=== PATIENT | male | born 1925 | race Caucasian/White ===

== ENCOUNTER 2016-09-16 17:14 | Emergency (ER) | payer OTHER ==
[~2016-09-16] VITALS: Ht 162.6 cm; Wt 69.8 kg
[~2016-09-16 17:14] MED LIST: ATR10 PO; CALC-342 PO; CHOL20005 PO; CLR10 PO; CODCAP PO; CYAN500T13 PO; GARL400T4 PO; LECI1200 PO; LEVO112T4 PO; LISI-461 PO; MULTTAB58 PO
[2016-09-16 17:18] VITALS: Ht 162.6 cm; Wt 69.8 kg
[2016-09-16] MEDS ORDERED: SODIUM CHLORIDE 0.9% 500ML 500 ML IV STA (17:38)
[2016-09-16] MEDS ORDERED: METOPROLOL TARTRATE 50 MG TAB PO STA (17:38)
--- NOTE | 2016-09-16 17:47 | EMERGENCY ROOM VISIT NOTE ---
History Report prepared by Royal: Mukesh Chapin Under the Supervision of: Dr. Waldo Duenas D.O. First contact with patient: 17:23 Chief Complaint: CARDIAC ASSESSMENT Stated Complaint: HEART BEAT- IRREGULAR History of Present Illness The patient is an 89 year old male who presents to the Emergency Room with complaints of an intermittent irregular heart beat starting this morning. The patient states that he saw a PA this morning just for a check up, and they noticed that he had an irregular heart rate. The patient states that he has felt this before, and it sometimes happens when he lays down. The patient denies any chest pain, shortness of breath, or abnormal leg swelling. The patient states that it feels like his heart is fluttering, and he states that he has a possible heart murmur. He states that he has some right ankle swelling , though he thinks that it is due to arthritis from an old injury. He states that he has a history of thyroid issues and high blood pressure. He denies any smoking or drinking. He states that he had a stress test done in the past before , though he does not remember why he got it. Source of History: patient Onset: this morning Position: other (heart) Quality: other (irregular heart rate) Timing: intermittent Associated Symptoms: No chest pain, No SOB Review of Systems See HPI for pertinent positives & negatives. A total of 10 systems reviewed and were otherwise negative. Past Medical & Surgical Medical Problems: (1) Benign essential hypertension (2) Benign prostatic hyperplasia (3) Deep venous thrombosis of lower extremity (4) Hypothyroidism Family History Cancer Heart disease Social History Smoking Status: Never Smoker Alcohol Use: none Marital Status: Housing Status: lives with significant other Occupation Status: employed Current/Historical Medications Scheduled Calcium Carbonate-Vitamin D (Calcium 600+D), 1 TAB PO QAM Cholecalciferol (Vitamin D3), 2,000 INTER.UNIT PO QAM Cod Liver Oil (Cod Liver Oil), 1 CAP PO QAM Cyanocobalamin (Vitamin B12 500MCG), 500 MCG PO DAILY Docusate Sodium (Colace), 1 CAP PO BID Garlic (Garlic), 1 CAP PO DAILY Hydroxyzine HCl (Hydroxyzine HCl), 10 MG PO QAM Lecithin (Lecithin), 1,200 MG PO QAM Levothyroxine Sodium (Levothyroxine Sodium), 1 TAB PO DAILYBB Lisinopril (Lisinopril), 10 MG PO QAM Loratadine (Claritin), 10 MG PO QAM Metoprolol Succinate (Toprol Xl), 50 MG PO DAILY Multiple Vitamin (Multivitamin), 1 TAB PO QAM Ropinirole Hydrochloride (Requip), 1.5 TAB PO HS Warfarin Sodium (Coumadin), 5 MG PO DAILY Allergies Coded Allergies: Niacin (Verified Adverse Reaction, Unknown, Skin sensation of crawling., ) Reported by PT. Physical Exam Vital Signs Date Time Temp Pulse Resp B/P (MAP) Pulse Ox O2 Delivery O2 Flow Rate FiO2 09/16/16 21:03 36.7 89 22 141/91 94 09/16/16 20:36 89 22 94 09/16/16 20:31 141/91 09/16/16 20:06 89 22 94 09/16/16 20:01 143/107 09/16/16 19:36 97 23 94 09/16/16 19:31 138/103 09/16/16 19:23 114 22 97 09/16/16 19:01 137/108 09/16/16 18:53 100 25 95 09/16/16 18:31 135/74 09/16/16 18:30 94 Room Air 09/16/16 18:23 92 18 96 09/16/16 18:18 127/101 09/16/16 18:14 102 20 94 09/16/16 17:44 102 15 94 09/16/16 17:39 103 09/16/16 17:26 144/105 09/16/16 17:18 36.7 115 18 128/94 96 Room Air Physical Exam GENERAL: Patient is awake, alert, and in no acute distress. Patient is resting comfortably and showing no signs of anxiety EYES: The conjunctivae are clear. The pupils are round and reactive. EARS, NOSE, MOUTH AND THROAT: The nose is without any evidence of any deformity. Mucous membranes are moist tongue is midline NECK: The neck is nontender and supple. RESPIRATORY: Normal respiratory effort is noted there is no evidence of wheezing rhonchi or rales CARDIOVASCULAR: Heart sounds tachycardic with an irregular rhythm noted to auscultation. No definite murmur. GASTROINTESTINAL: The abdomen is soft. Bowel sounds are present in all quadrants. Abdomen is nontender MUSCULOSKELETAL/EXTREMITIES: There is no evidence of gross deformity full range of motion is noted in the hips and shoulders SKIN: Trace pedal edema right greater than left NEUROLOGIC: Patient is awake alert and oriented x3 Medical Decision & Procedures ER Provider Diagnostic Interpretation: X-ray results as stated below per interpretation by me and the radiologist. CHEST ONE VIEW PORTABLE CLINICAL HISTORY: Palpitations. COMPARISON STUDY: Chest radiograph June 12, 2014. FINDINGS: There is mild cardiomegaly without evidence of pulmonary edema. No consolidation is identified. There is no pneumothorax or pleural effusion. Cholecystectomy clips are present. IMPRESSION: No acute cardiopulmonary findings. No change in appearance of the chest. Electronically signed by: Gibson Justice M.D. 09/16/2016 6:04 PM Dictated Date/Time: 09/16/2016 6:03 PM Laboratory Results 09/16/16 17:33 Red Blood Count 4.71, Mean Corpuscular Volume 85.4, Mean Corpuscular Hemoglobin 28.7, Mean Corpuscular Hemoglobin Concent 33.6, Mean Platelet Volume 8.7, Neutrophils (%) (Auto) 57.6, Lymphocytes (%) (Auto) 29.3, Monocytes (%) (Auto) 10.2, Eosinophils (%) (Auto) 2.1, Basophils (%) (Auto) 0.7, Neutrophils # (Auto ) 4.17, Lymphocytes # (Auto) 2.12, Monocytes # (Auto) 0.74, Eosinophils # (Auto ) 0.15, Basophils # (Auto) 0.05 09/16/16 17:33 Test 09/16/16 17:33 White Blood Count 7.24 K/uL (4.8-10.8) Red Blood Count 4.71 M/uL (4.7-6.1) Hemoglobin 13.5 g/dL (14.0-18.0) Hematocrit 40.2 % (42-52) Mean Corpuscular Volume 85.4 fL (80-100) Mean Corpuscular Hemoglobin 28.7 pg (25-34) Mean Corpuscular Hemoglobin Concent 33.6 g/dl (32-36) Platelet Count 205 K/uL (130-400) Mean Platelet Volume 8.7 fL (7.4-10.4) Neutrophils (%) (Auto) 57.6 % Lymphocytes (%) (Auto) 29.3 % Monocytes (%) (Auto) 10.2 % Eosinophils (%) (Auto) 2.1 % Basophils (%) (Auto) 0.7 % Neutrophils # (Auto) 4.17 K/uL (1.4-6.5) Lymphocytes # (Auto) 2.12 K/uL (1.2-3.4) Monocytes # (Auto) 0.74 K/uL (0.11-0.59) Eosinophils # (Auto) 0.15 K/uL (0-0.5) Basophils # (Auto) 0.05 K/uL (0-0.2) RDW Standard Deviation 45.3 fL (36.4-46.3) RDW Coefficient of Variation 14.6 % (11.5-14.5) Immature Granulocyte % (Auto) 0.1 % Immature Granulocyte # (Auto) 0.01 K/uL (0.00-0.02) Prothrombin Time 10.6 SECONDS (9.0-12.0) Prothromb Time International Ratio 1.0 (0.9-1.1) Activated Partial Thromboplast Time 27.5 SECONDS (21.0-31.0) Partial Thromboplastin Ratio 1.1 Anion Gap 8.0 mmol/L (3-11) Est Creatinine Clear Calc Drug Dose 30.0 ml/min Estimated GFR () 51.3 Estimated GFR (Non- 44.2 BUN/Creatinine Ratio 13.2 (10-20) Calcium Level 9.1 mg/dl (8.5-10.1) Magnesium Level 2.1 mg/dl (1.8-2.4) Total Bilirubin 0.6 mg/dl (0.2-1) Direct Bilirubin 0.1 mg/dl (0-0.2) Aspartate Amino Transf (AST/SGOT) 19 U/L (15-37) Alanine Aminotransferase (ALT/SGPT) 19 U/L (12-78) Alkaline Phosphatase 81 U/L (45-117) Total Creatine Kinase 123 U/L (39-308) Creatine Kinase MB 2.7 ng/ml (0.5-3.6) Creatine Kinase MB Ratio 2.2 (0-3.0) Troponin I 0.018 ng/ml (0-0.045) Total Protein 7.2 gm/dl (6.4-8.2) Albumin 3.8 gm/dl (3.4-5.0) Lipase 142 U/L (73-393) Thyroid Stimulating Hormone (TSH) 1.140 uIu/ml (0.300-4.500) Free Thyroxine 1.47 ng/dl (0.80-1.60) Laboratory results per my review. Medications Administered Medications (Trade) Dose Ordered Sig/Cesar Route Start Time Stop Time Status Last Admin Dose Admin Metoprolol Tartrate (Lopressor Tab) 25 mg NOW STAT PO 09/16/16 17:38 09/16/16 17:39 DC 09/16/16 18:16 25 MG Sodium Chloride 500 ml @ 999 mls/hr Q31M STAT IV 09/16/16 17:38 09/16/16 18:08 DC 09/16/16 18:15 999 MLS/HR Warfarin Sodium (Coumadin Tab) 10 mg NOW ONCE PO 09/16/16 19:45 09/16/16 19:46 DC 09/16/16 20:50 10 MG ECG Indication: other (irregular heart rate) Rate (beats per minute): 116 Rhythm: atrial fibrillation Findings: PVC, ST depression (Lateral) Comparison ECG Date: 05/02/14 Change: A-fib replaced normal sinus rhythm. Otherwise no changes. ED Course 1723: The patient was evaluated in room B8. A complete history and physical examination were performed. 1738: NSS 500 ml @ 999 mls/hr IV, Lopressor Tab 25mg PO 1944: Coumadin Tab 10mg PO 2006: I discussed the patient's case with Dr. Carter, Cardiology, and he gave me medication recommendations, and he will follow up with the patient. 2016: Upon reevaluation, the patient is feeling well. I discussed the results and treatment plan with him. He verbalized agreement of the treatment plan. He was discharged home. Medical Decision Differential diagnosis: Etiologies such as premature contractions, electrolyte abnormality, cardiac dysrhythmia, thyroid dysfunction, pulmonary embolism, infection, gastrointestinal, as well as others were entertained. Nursing notes reviewed. The patient is an 89-year-old male who presented to the emergency department for an evaluation of asymptomatic atrial fibrillation. The patient appears to have new onset atrial fibrillation. He has had a cardiac workup in 2013. I discussed the patient's laboratory radiographic studies with him. He was treated with IV fluids as well as metoprolol in the emergency department. He was also started on Coumadin. I discussed his case with the on-call [facility] hydro excavation operator. He was also evaluated by the emergency Department pharmacist. The patient is familiar with Coumadin. 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 He was encouraged to rest and avoid any strenuous activity. He was also encouraged to continue all medications as prescribed. He was also encouraged return to emergency department immediately symptoms change worsen or the need arises. Medication Reconcilliation Current Medication List: was personally reviewed by me Blood Pressure Screening Patient's blood pressure: Elevated blood pressure Blood pressure disposition: Referred to PCP He is going to start on new medication Consults Time Called: 1909 Consulting Physician: Dr. Caretr, Cardiology Returned Call: 2005 I discussed the patient's case with Dr. Carter, Cardiology, and he gave me medication recommendations, and he will follow up with the patient. Impression Primary Impression: New onset a-fib Additional Impression: Palpitations Scribe Attestation The scribe's documentation has been prepared under my direction and personally reviewed by me in its entirety. I confirm that the note above accurately reflects all work, treatment, procedures, and medical decision making performed by me. Departure Information Dispostion Home / Self-Care Prescriptions Warfarin Sodium (COUMADIN) 5 Mg Tab 5 MG PO DAILY, #30 TAB Prov: Waldo Duenas, DO 09/16/16 Metoprolol Succinate (TOPROL XL) 50 Mg Tabcr 50 MG PO DAILY, #30 TAB Prov: Waldo Duenas, DO 09/16/16 Referrals Lyla Rae PA-C (PCP) Forms IMPORTANT VISIT INFORMATION Patient Instructions Atrial Fibrillation, Coumadin, [facility] Additional Instructions Call the hydro excavation operator as well as her primary care physician to schedule a follow -up appointment. Rest and avoid any strenuous activity. Return to the emergency department immediately if symptoms change worsen or the need arises. Stop taking your garlic supplement while your taking the Coumadin. Problem Qualifiers
[2016-09-16 17:50] LABS: BASO % 0.7 %; BASO ABS # 0.05 K/uL (0-0.2); COMPLETE YES; EOS % 2.1 %; HEMATOCRIT 40.2 % (42-52); IG% 0.1 %; LYMPH % 29.3 %; LYMPH ABS # 2.12 K/uL (1.2-3.4); MEAN CELL VOLUME 85.4 fL (80-100); MEAN CORPUSCULAR HEMOGLOBIN 28.7 pg (25-34); MEAN CORPUSCULAR HGB CONC 33.6 g/dl (32-36); MEAN PLATELET VOLUME 8.7 fL (7.4-10.4); MONO % 10.2 %; NEUT % 57.6 %; PLATELET COUNT 205 K/uL (130-400); RED BLOOD COUNT 4.71 M/uL (4.7-6.1); WHITE BLOOD COUNT 7.24 K/uL (4.8-10.8)
--- NOTE | 2016-09-16 18:05 | DIAGNOSTIC IMAGING REPORT ---
CHEST ONE VIEW PORTABLE CLINICAL HISTORY: Palpitations. COMPARISON STUDY: Chest radiograph June 12, 2014. FINDINGS: There is mild cardiomegaly without evidence of pulmonary edema. No consolidation is identified. There is no pneumothorax or pleural effusion. Cholecystectomy clips are present. IMPRESSION: No acute cardiopulmonary findings. No change in appearance of the chest. Electronically signed by: Gibson Justice M.D. 09/16/2016 6:04 PM Dictated Date/Time: 09/16/2016 6:03 PM
[2016-09-16 18:08] LABS: BUN/CREATININE RATIO 13.2 (10-20); CALCIUM 9.1 mg/dl (8.5-10.1); CREATININE 1.4 mg/dl (0.60-1.40); MAGNESIUM 2.1 mg/dl (1.8-2.4); POTASSIUM 4.4 mmol/L (3.5-5.1)
[2016-09-16] MEDS ORDERED: ROPI0.5T PO (18:08)
[2016-09-16] MEDS ORDERED: GARL500C5 PO (18:08)
[2016-09-16] MEDS ORDERED: LEVO125T4 PO (18:08)
[2016-09-16] MEDS ORDERED: DOCU-94 PO (18:09)
[2016-09-16 18:12] LABS: PARTIAL THROMBOPLASTIN RATIO 1.1; PROTHROMBIN TIME (PATIENT) 10.6 SECONDS (9.0-12.0)
[2016-09-16 18:17] LABS: CKMB/CK RATIO 2.2 (0-3.0); THYROID STIMULATING HORMONE 1.14 uIu/ml (0.300-4.500)
[2016-09-16] MEDS ORDERED: WARFARIN SOD 5 MG TAB PO ONE (19:45)
[2016-09-16] MEDS ORDERED: METO-217 PO (20:09)
[2016-09-16] MEDS ORDERED: WARF5TAB90 PO (20:09)
[2016-09-16 21:03] VITALS: BP 141/91; PULSE 89; TEMP 36.7; O2SAT 94
--- NOTE | 2016-09-17 11:18 | Pharmacy Progress Note ---
ED Pharmacist Counseling Note Date of Service: Sep 17, 2016. 09/16/16 Patient with new-onset Afib. I spent 30 minutes with the patient and his daughter discussing outpatient management as follows. Warfarin Patient's current outpatient prescriptions were reviewed - counseled to stop his garlic until he can have a discussion with his PCP / Coumadin clinic Discussed the following with the patient Goal INR range 2-3 Importance of outpatient follow-up / INR monitoring Drug interactions and importance of consistency Avoidance of NSAIDs - with the exception of his aspirin 81 mg Dietary considerations and importance of consistency Signs/symptoms of bleeding Signs/symptoms of clot
== END 2016-09-16 21:04 | disposition home or self-care (01) ==
LOC: C.EDB 17:15
DX: I48.91 Unspecified atrial fibrillation (principal); R00.2 Palpitations; I10 Essential (primary) hypertension; E03.9 Hypothyroidism, unspecified; Z86.718 Personal history of other venous thrombosis and embolism; Z79.01 Long term (current) use of anticoagulants; Z79.899 Other long term (current) drug therapy; Z88.8 Allergy status to other drugs, medicaments and biological substances; Z80.9 Family history of malignant neoplasm, unspecified; Z82.49 Family history of ischemic heart disease and other diseases of the circulatory system

== ENCOUNTER → 2016-09-24 | Outpatient (CLI) | payer OTHER ==
[~2016-09-24] MED LIST changes: +DOCU-94 PO; -GARL400T4 PO; +GARL500C5 PO; -LEVO112T4 PO; +LEVO125T4 PO; +METO-217 PO; +ROPI0.5T PO; +WARF5TAB90 PO
--- NOTE | 2016-09-24 12:25 | DIAGNOSTIC IMAGING REPORT ---
BILATERAL CAROTID DOPPLER STUDY HISTORY: BILATERAL CAROTID ARTERY ATHEROSCLEROSIS COMPARISON: Carotid Doppler 05/22/2013. TECHNIQUE: Real-time, grayscale, and color Doppler sonography of the carotid arteries was performed. Imaging reviewed in the transverse and longitudinal planes. All measurements were calculated based on NASCET criteria. FINDINGS: Antegrade flow is seen in the bilateral vertebral arteries. The brachial pressures are hemodynamically similar. There is extensive calcified and noncalcified plaque within the right carotid bulb. There is also moderate calcified plaque within the left carotid bulb. The peak systolic velocity within the right ICA is 103 cm/s. The right systolic ratio is 2.2. The peak systolic velocity within the left ICA is 116 cm/s. The left systolic ratio is 2.5. IMPRESSION: The peak systolic velocity of the bilateral carotid bulbs are not significantly elevated. However, the provided images suggest a approximately 50% stenosis on the right and 40 % stenosis on the left. This is similar to the prior study. Electronically signed by: Osiel Jimenes M.D. 09/24/2016 12:23 PM Dictated Date/Time: 09/24/2016 12:19 PM
== END | disposition home or self-care (01) ==
LOC: C.ULTR 11:11
PROVIDERS: ATTEND Physician Assistant
DX: I65.23 Occlusion and stenosis of bilateral carotid arteries (principal)